=== PATIENT | male | born 1975 ===

== ENCOUNTER 2022-11-17 12:22 | Emergency (ER) | payer BC ==
[2022-11-17] MEDS ORDERED: Diphtheria,Pertussis(Acell),Tetanus Vaccine 0.5 ML Syringe IM ONE (13:23)
== END 2022-11-17 13:40 | disposition home or self-care (01) ==
LOC: LB.ED 12:22
DX: S67.02XA Crushing injury of left thumb, initial encounter (principal); I10 Essential (primary) hypertension; Z23 Encounter for immunization; W23.0XXA Caught, crushed, jammed, or pinched between moving objects, initial encounter; Y92.89 Other specified places as the place of occurrence of the external cause; Y99.0 Civilian activity done for income or pay
CPT/HCPCS: 73140-FA; 90471; 90715; 99282; 99283-25